=== PATIENT | female | born 1975 | race American Indian/Alaskan Native ===

== ENCOUNTER 2018-09-24 15:04 | Emergency (ER) | payer SELFPAY ==
[2018-09-24 15:33] VITALS: BP 144/84
--- NOTE | 2018-09-24 15:34 | Emergency Department Report ---
Chief Complaint: Dizziness Stated Complaint: FLU LIKE SX Time Seen by Provider: 09/24/18 15:30 - HPI History of Present Illness: This is a 43 y.o. female that presents with flu-like symptoms and dizziness x 3 days. - Exam Vital Signs: Vital Signs 09/24/18 15:26 Temperature 101.1 F H Pulse Rate 97 H Respiratory 20 Rate Blood Pressure 144/84 O2 Sat by Pulse 96 Oximetry Physical Exam: Vital Signs 09/24/18 15:26 Temperature 101.1 F H Pulse Rate 97 H Respiratory 20 Rate Blood Pressure 144/84 O2 Sat by Pulse 96 Oximetry MSE screening note: Focused history and physical exam performed. Due to findings the following was ordered: Rapid flu x CXR ED Disposition for MSE Condition: Stable
[2018-09-24] MEDS ORDERED: MOTRIN PO ONE (17:26)
--- NOTE | 2018-09-24 17:26 | Emergency Department Report ---
- General Chief Complaint: Dizziness Stated Complaint: FLU LIKE SX Time Seen by Provider: 09/24/18 15:30 Source: patient Mode of arrival: Ambulatory Limitations: No Limitations - History of Present Illness Initial Comments: Pt is a 43 yo female PMHx of anemia who presents to the ED with c/o a dry cough that began two days ago. She has associated congestion, fever, rhinorrhea, lig htheadedness, and chest discomfort only with coughing frequently. She denies any sick contacts, sore throat, or ear ache. She states she took a packet that she mixed with water for cold symptoms but was not sure of the name. - Related Data Previous Rx's Medication Instructions Recorded Last Taken Type Azithromycin [Zithromax Z-KELVIN] 250 mg PO DAILY 5 Days #6 tablet 09/24/18 Unknown Rx Benzonatate [Tessalon Perles] 100 mg PO Q8HR PRN #15 capsule 09/24/18 Unknown Rx Prednisone [predniSONE 10 mg 10 mg PO .TAPER #1 tab.ds.pk 09/24/18 Unknown Rx (6-Day Pack, 21 Tabs)] guaiFENesin [Mucinex] 600 mg PO BID #14 tab.er.12h 09/24/18 Unknown Rx Allergies Allergy/AdvReac Type Severity Reaction Status Date / Time No Known Allergies Allergy Verified 09/24/18 15:06 ED Review of Systems ROS: Stated complaint: FLU LIKE SX Other details as noted in HPI Comment: All other systems reviewed and negative ED Past Medical Hx - Past Medical History Previous Medical History?: Yes Additional medical history: anemia - Surgical History Past Surgical History?: No - Social History Smoking Status: Never Smoker Substance Use Type: None - Medications Home Medications: Home Medications Medication Instructions Recorded Confirmed Last Taken Type Azithromycin [Zithromax Z-KELVIN] 250 mg PO DAILY 5 Days #6 tablet 09/24/18 Unknown Rx Benzonatate [Tessalon Perles] 100 mg PO Q8HR PRN #15 capsule 09/24/18 Unknown Rx Prednisone [predniSONE 10 mg 10 mg PO .TAPER #1 tab.ds.pk 09/24/18 Unknown Rx (6-Day Pack, 21 Tabs)] guaiFENesin [Mucinex] 600 mg PO BID #14 tab.er.12h 09/24/18 Unknown Rx ED Physical Exam - General Limitations: No Limitations General appearance: alert, in no apparent distress - Head Head exam: Present: atraumatic, normocephalic - Eye Eye exam: Present: normal appearance - ENT ENT exam: Present: normal orophraynx, other (edema and erythema of the nasal turbinates, cerumen impaction bilaterally) - Neck Neck exam: Present: normal inspection. Absent: meningismus - Respiratory Respiratory exam: Present: normal lung sounds bilaterally. Absent: respiratory distress, wheezes, rales, rhonchi, stridor, chest wall tenderness, accessory muscle use, decreased breath sounds, prolonged expiratory - Cardiovascular Cardiovascular Exam: Present: regular rate, normal rhythm, normal heart sounds. Absent: systolic murmur, rubs, gallop - Neurological Exam Neurological exam: Present: alert, oriented X3 - Psychiatric Psychiatric exam: Present: normal affect, normal mood - Skin Skin exam: Present: warm, dry, intact ED Course Vital Signs 09/24/18 15:26 Temperature 101.1 F H Pulse Rate 97 H Respiratory 20 Rate Blood Pressure 144/84 O2 Sat by Pulse 96 Oximetry ED Medical Decision Making - Lab Data Vital Signs 09/24/18 15:26 Temperature 101.1 F H Pulse Rate 97 H Respiratory 20 Rate Blood Pressure 144/84 O2 Sat by Pulse 96 Oximetry repeat vitals: temp 100.2 and HR 96 - EKG Data -: EKG Interpreted by Ca EKG shows normal: sinus rhythm, axis, intervals, QRS complexes, ST-T waves Rate: normal - Radiology Data Radiology results: report reviewed TECHNIQUE: PA and lateral views of the chest. HISTORY: cough, sob COMPARISONS: None FINDINGS: Lines, tubes, and devices: N/A Lungs and pleura: Trachea is normal in position. Mild markings in the left lateral costophrenic angle are noted suspicious for atelectasis or early infiltrate. Cardiomediastinal silhouette: Cardiac and mediastinal silhouettes are unremarkable. Other: Bony structures are intact. IMPRESSION: Infiltrate in the left lateral costophrenic angle suspicious for atelectasis or pneumonia This document is electronically signed by Elsie Gaytan MD., September 24 2018 05:22:26 PM ET - Medical Decision Making Pt presents with a dry cough x 2 days. She has associated fever, rhinorrhea, congestion, and chest discomfort only after coughing. CXR shows a possible early left sided PNA vs atelectasis. Pt was febrile in the ED, given ibuprofen and now is afebrile. VSS. oxygen saturation is WNL. Discussed results with pt. Advised to take ibuprofen or tylenol for a temperature of 100.4 or greater. Will tx patient for CAP PNA. Advised pt to take all medication as prescribed and follow up with her PCP in the next 2 days. Discussed return to the ED for any new or worsening symptoms. - Differential Diagnosis URI, PNA, Influenza, Viral syndrome Critical care attestation.: If time is entered above; I have spent that time in minutes in the direct care of this critically ill patient, excluding procedure time. ED Disposition Clinical Impression: PNA (pneumonia) Qualifiers: Pneumonia type: due to unspecified organism Laterality: left Lung location: unspecified part of lung Qualified Code(s): J18.9 - Pneumonia, unspecified organism Disposition: - TO HOME OR SELFCARE Is pt being admited?: No Does the pt Need Aspirin: No Condition: Stable Instructions: Community-acquired Pneumonia (ED) Additional Instructions: Follow up with your primary care doctor in the next 2 days. Return to the emergency room for any new or worsening symptoms or if symptoms do not improve. Take all medication as prescribed. Use tylenol or ibuprofen for a temperature of 100.4 or greater. Prescriptions: guaiFENesin [Mucinex] 600 mg PO BID #14 tab.er.12h Prednisone [predniSONE 10 mg (6-Day Pack, 21 Tabs)] 10 mg PO .TAPER #1 tab.ds.pk Benzonatate [Tessalon Perles] 100 mg PO Q8HR PRN #15 capsule PRN Reason: Cough Azithromycin [Zithromax Z-KELVIN] 250 mg PO DAILY 5 Days #6 tablet Referrals: PRIMARY CARE,MD [Primary Care Provider] - 2-3 Days Forms: Work/School Release Form(ED) Time of Disposition: 18:02 Print Language: [place]
[2018-09-24] MEDS ORDERED: MOTRIN ONE (17:28)
== END 2018-09-24 20:07 | disposition home or self-care (01) ==
LOC: ED 15:04
DX: J18.9 Pneumonia, unspecified organism (principal)
CPT/HCPCS: 71046; 87400; 93005; 93010; 99283

== ENCOUNTER 2018-10-24 21:51 | Inpatient (IN) | payer MEDICAID, OTHER ==
--- NOTE | 2018-10-24 21:57 | Emergency Department Report ---
Blank Doc - Documentation Documentation: This is a 43-year-old female that presents with facial drooping and one sided weakness. This initial assessment/diagnostic orders/clinical plan/treatment(s) is/are subject to change based on patient's health status, clinical progression and re- assessment by fellow clinical providers in the ED. Further treatment and workup at subsequent clinical providers discretion. Patient/guardians urged not to elope from the ED as their condition may be serious if not clinically assessed and managed. Initial orders include: 1- Patient sent to MAIN ED for further evaluation and treatment 2- code stroke 3 labs 4- CT head
[2018-10-24 22:13] LABS: Mean Corpuscular HGB Conc 32 % (30-34); Mean Corpuscular Volume 72 fl (79-97); Platelet Count 245 K/mm3 (140-440); Red Cell Distribution Width 17.2 % (13.2-15.2)
[2018-10-24 22:24] LABS: INR 0.95 (0.87-1.13); Partial Thromboplastin Time 28.7 Sec. (24.2-36.6)
[2018-10-24 22:25] LABS: Thrombin Time 19.1 Sec. (15.1-19.6)
--- NOTE | 2018-10-24 22:26 | Cat Scan Report ---
PROCEDURE: CT HEAD/BRAIN WO CON TECHNIQUE: Axial helical imaging from the skull base to the vertex. HISTORY: Stroke symptoms COMPARISONS: None FINDINGS: There is no evidence of an acute intracranial process, intracranial hemorrhage or mass effect. The ventricles are normal size. The visualized portions of the orbits, paranasal and mastoid sinuses are unremarkable. The bony structures are unremarkable. IMPRESSION: 1. No evidence of an acute intracranial process, intracranial hemorrhage or mass effect. If there is a clinical suspicion of acute cerebral ischemia, MRI brain may be helpful. The findings of no evidence of acute infarct and no evidence of intracranial hemorrhage were relayed to Dr. Castillo at 10:20 PM October 24, 2018. This document is electronically signed by Lisa Valentino MD., October 24 2018 10:24:18 PM ET
--- NOTE | 2018-10-24 22:28 | Emergency Department Report ---
ED Neuro Deficit HPI - General Chief Complaint: Neuro Symptoms/Deficit Stated Complaint: POSS STOKE/BLURRED VISION/FACIAL NUMBNESS Time Seen by Provider: 10/24/18 21:56 Source: patient Mode of arrival: Ambulatory Limitations: No Limitations - History of Present Illness Initial Comments: 43-year-old female with no past medical history presents to ED with complaint of facial droop. Patient states she awoke this morning and 6:30 AM with right facial weakness. Patient states when she went to bed last night at approximately 9 PM everything was normal. Patient reports photophobia in the right eye. Also reports mild right-sided headache that has developed throughout the day. Patient also reported mild weakness in the right leg as well. PCP: none -: This morning Location: right face, right leg Presenting Symptoms: Present: Facial Droop/Numbness History of same: No Place: home Severity: moderate Quality: weak Improves With: none Worsens With: none On Anticoagulants: No Associated Symptoms: headaches. denies: chest pain, nausea/vomiting Treatments Prior to Arrival: none - Related Data Home Medications: Previous Rx's Medication Instructions Recorded Last Taken Type Azithromycin [Zithromax Z-KELVIN] 250 mg PO DAILY 5 Days #6 tablet 09/24/18 Unknown Rx Benzonatate [Tessalon Perles] 100 mg PO Q8HR PRN #15 capsule 09/24/18 Unknown Rx Prednisone [predniSONE 10 mg 10 mg PO .TAPER #1 tab.ds.pk 09/24/18 Unknown Rx (6-Day Pack, 21 Tabs)] guaiFENesin [Mucinex] 600 mg PO BID #14 tab.er.12h 09/24/18 Unknown Rx Allergies/Adverse Reactions: Allergies Allergy/AdvReac Type Severity Reaction Status Date / Time No Known Allergies Allergy Verified 09/24/18 15:06 ED Review of Systems ROS: Stated complaint: POSS STOKE/BLURRED VISION/FACIAL NUMBNESS Other details as noted in HPI Comment: All other systems reviewed and negative Constitutional: denies: chills, fever Respiratory: denies: cough Cardiovascular: denies: chest pain Gastrointestinal: denies: nausea, vomiting Neurological: headache, weakness ED Past Medical Hx - Past Medical History Additional medical history: anemia - Social History Smoking Status: Never Smoker Substance Use Type: None - Medications Home Medications: Home Medications Medication Instructions Recorded Confirmed Last Taken Type Azithromycin [Zithromax Z-KELVIN] 250 mg PO DAILY 5 Days #6 tablet 09/24/18 Unknown Rx Benzonatate [Tessalon Perles] 100 mg PO Q8HR PRN #15 capsule 09/24/18 Unknown Rx Prednisone [predniSONE 10 mg 10 mg PO .TAPER #1 tab.ds.pk 09/24/18 Unknown Rx (6-Day Pack, 21 Tabs)] guaiFENesin [Mucinex] 600 mg PO BID #14 tab.er.12h 09/24/18 Unknown Rx ED Neuro Physical Exam - General Limitations: No Limitations General appearance: alert, in no apparent distress Suspected Stroke: Yes - Head Head exam: Present: atraumatic, normocephalic - Eye Eye exam: Present: PERRL, EOMI, other (unable to fully close right eye) - ENT ENT exam: Present: mucous membranes moist - Neck Neck exam: Present: normal inspection - Respiratory Respiratory exam: Present: normal lung sounds bilaterally. Absent: respiratory distress - Cardiovascular Cardiovascular Exam: Present: regular rate, normal rhythm - GI/Abdominal GI/Abdominal exam: Present: soft. Absent: distended, tenderness - Extremities Exam Extremities exam: Present: normal inspection - Neurological Exam Neurological exam: Present: alert, oriented X3 - NIHSS Assessment Interval: Baseline 1a. Level of Consciousness: alert/keenly responsive 1b. LOC Questions: answers both correctly 1c. LOC Commands: performs tasks correctly 2. Best Gaze: normal 3. Visual: no visual loss 4. Facial Palsy: partial paralysis 5b. Motor Arm Right: no drift 5a. Motor Arm Left: no drift 6a. Motor Leg Left: no drift 6b. Motor Leg Right: drift 7. Limb Ataxia: absent 8. Sensory: mild/moderate sensory loss 9. Best Language: no aphasia 10. Dysarthria: normal 11. Extinction/Inattention: no abnormality Total Score: 4 Stroke Severity: Minor Stroke - Psychiatric Psychiatric exam: Present: normal affect, normal mood - Skin Skin exam: Present: warm, dry, intact, normal color ED Course Vital Signs 10/24/18 10/24/18 21:54 22:29 Temperature 98.0 F 98.5 F Pulse Rate 100 H 92 H Respiratory 16 12 Rate Blood Pressure 132/89 Blood Pressure 135/80 [Left] O2 Sat by Pulse 98 100 Oximetry - Lab Data Result diagrams: 10/24/18 22:03 10/24/18 22:03 Lab Results 10/24/18 10/24/18 10/24/18 Range/Units 22:00 22:03 22:03 WBC 5.1 (4.5-11.0) K/mm3 RBC 4.70 (3.65-5.03) M/mm3 Hgb 11.0 (10.1-14.3) gm/dl Hct 34.0 (30.3-42.9) % MCV 72 L (79-97) fl MCH 23 L (28-32) pg MCHC 32 (30-34) % RDW 17.2 H (13.2-15.2) % Plt Count 245 (140-440) K/mm3 Add Manual Diff Complete Total Counted 100 Seg Neutrophils % [place] Seg Neuts % (Manual) 50.0 (40.0-70.0) % Band Neutrophils % 0 % Lymphocytes % (Manual) 38.0 H (13.4-35.0) % Reactive Lymphs % (Man) 0 % Monocytes % (Manual) 11.0 H (0.0-7.3) % Eosinophils % (Manual) 0 (0.0-4.3) % Basophils % (Manual) 1.0 (0.0-1.8) % Metamyelocytes % 0 % Myelocytes % 0 % Promyelocytes % 0 % Blast Cells % 0 % Nucleated RBC % Not Reportable Seg Neutrophils # Man 2.6 (1.8-7.7) K/mm3 Band Neutrophils # 0.0 K/mm3 Lymphocytes # (Manual) 1.9 (1.2-5.4) K/mm3 Abs React Lymphs (Man) 0.0 K/mm3 Monocytes # (Manual) 0.6 (0.0-0.8) K/mm3 Eosinophils # (Manual) 0.0 (0.0-0.4) K/mm3 Basophils # (Manual) 0.1 (0.0-0.1) K/mm3 Metamyelocytes # 0.0 K/mm3 Myelocytes # 0.0 K/mm3 Promyelocytes # 0.0 K/mm3 Blast Cells # 0.0 K/mm3 WBC Morphology Not Reportable Hypersegmented Neuts Not Reportable Hyposegmented Neuts Not Reportable Hypogranular Neuts Not Reportable Smudge Cells Not Reportable Toxic Granulation Not Reportable Toxic Vacuolation Not Reportable Dohle Bodies Not Reportable Pelger-Huet Anomaly Not Reportable Karyn Rods Not Reportable Platelet Estimate Consistent w auto Clumped Platelets Not Reportable Plt Clumps, EDTA Not Reportable Large Platelets Not Reportable Giant Platelets Few Platelet Satelliting Not Reportable Plt Morphology Comment Not Reportable RBC Morphology Not Reportable Dimorphic RBCs Not Reportable Polychromasia Not Reportable Hypochromasia 1+ Poikilocytosis Not Reportable Anisocytosis Not Reportable Microcytosis Not Reportable Macrocytosis Not Reportable Spherocytes Not Reportable Pappenheimer Bodies Not Reportable Sickle Cells Not Reportable Target Cells Not Reportable Tear Drop Cells Not Reportable Ovalocytes Not Reportable Helmet Cells Not Reportable [place] Bodies Not Reportable [place] Rings Not Reportable [place] Cells Not Reportable Bite Cells Not Reportable Crenated Cell Not Reportable Elliptocytes Not Reportable Acanthocytes (Spur) Not Reportable Rouleaux Not Reportable Hemoglobin C Crystals Not Reportable Schistocytes Not Reportable Malaria parasites Not Reportable Dhruv Bodies Not Reportable Hem Pathologist Commnt No PT 13.2 (12.2-14.9) Sec. INR 0.95 (0.87-1.13) APTT 28.7 (24.2-36.6) Sec. Thrombin Time 19.1 (15.1-19.6) Sec. Sodium (137-145) mmol/L Potassium (3.6-5.0) mmol/L Chloride (98-107) mmol/L Carbon Dioxide (22-30) mmol/L Anion Gap mmol/L BUN (7-17) mg/dL Creatinine (0.7-1.2) mg/dL Estimated GFR ml/min BUN/Creatinine Ratio % Glucose (65-100) mg/dL POC Glucose (70-105) Calcium (8.4-10.2) mg/dL Total Creatine Kinase (30-135) units/L CK-MB (CK-2) (0.0-4.0) ng/mL CK-MB (CK-2) Rel Index (0-4) Troponin T (0.00-0.029) ng/mL Urine Color (Yellow) Urine Turbidity (Clear) Urine pH (5.0-7.0) Ur Specific [place] (1.003-1.030) Urine Protein (Negative) mg/dL Urine Glucose (UA) (Negative) mg/dL Urine Ketones (Negative) mg/dL Urine Blood (Negative) Urine Nitrite (Negative) Urine Bilirubin (Negative) Urine Urobilinogen (<2.0) mg/dL Ur Leukocyte Esterase (Negative) Urine WBC (Auto) (0.0-6.0) /HPF Urine RBC (Auto) (0.0-6.0) /HPF U Epithel Cells (Auto) (0-13.0) /HPF Urine HCG, Qual (Negative) Urine Opiates Screen Urine Methadone Screen Ur Barbiturates Screen Ur Phencyclidine Scrn Ur Amphetamines Screen U Benzodiazepines Scrn Urine Cocaine Screen U Marijuana (THC) Screen Drugs of Abuse Note Blood Type AB NEGATIVE Antibody Screen Negative 10/24/18 10/24/18 10/24/18 Range/Units 22:03 22:08 23:55 WBC (4.5-11.0) K/mm3 RBC (3.65-5.03) M/mm3 Hgb (10.1-14.3) gm/dl Hct (30.3-42.9) % MCV (79-97) fl MCH (28-32) pg MCHC (30-34) % RDW (13.2-15.2) % Plt Count (140-440) K/mm3 Add Manual Diff Total Counted Seg Neutrophils % Seg Neuts % (Manual) (40.0-70.0) % Band Neutrophils % % Lymphocytes % (Manual) (13.4-35.0) % Reactive Lymphs % (Man) % Monocytes % (Manual) (0.0-7.3) % Eosinophils % (Manual) (0.0-4.3) % Basophils % (Manual) (0.0-1.8) % Metamyelocytes % % Myelocytes % % Promyelocytes % % Blast Cells % % Nucleated RBC % Seg Neutrophils # Man (1.8-7.7) K/mm3 Band Neutrophils # K/mm3 Lymphocytes # (Manual) (1.2-5.4) K/mm3 Abs React Lymphs (Man) K/mm3 Monocytes # (Manual) (0.0-0.8) K/mm3 Eosinophils # (Manual) (0.0-0.4) K/mm3 Basophils # (Manual) (0.0-0.1) K/mm3 Metamyelocytes # K/mm3 Myelocytes # K/mm3 Promyelocytes # K/mm3 Blast Cells # K/mm3 WBC Morphology Hypersegmented Neuts Hyposegmented Neuts Hypogranular Neuts Smudge Cells Toxic Granulation Toxic Vacuolation Dohle Bodies Pelger-Huet Anomaly Karyn Rods Platelet Estimate Clumped Platelets Plt Clumps, EDTA Large Platelets Giant Platelets Platelet Satelliting Plt Morphology Comment RBC Morphology Dimorphic RBCs Polychromasia Hypochromasia Poikilocytosis Anisocytosis Microcytosis Macrocytosis Spherocytes Pappenheimer Bodies Sickle Cells Target Cells Tear Drop Cells Ovalocytes Helmet Cells [place]-Seeley Bodies [place] Rings [place] Cells Bite Cells Crenated Cell Elliptocytes Acanthocytes (Spur) Rouleaux Hemoglobin C Crystals Schistocytes Malaria parasites Dhruv Bodies Hem Pathologist Commnt PT (12.2-14.9) Sec. INR (0.87-1.13) APTT (24.2-36.6) Sec. Thrombin Time (15.1-19.6) Sec. Sodium 141 (137-145) mmol/L Potassium 3.0 L (3.6-5.0) mmol/L Chloride 102.4 (98-107) mmol/L Carbon Dioxide 25 (22-30) mmol/L Anion Gap 17 mmol/L BUN 6 L (7-17) mg/dL Creatinine 0.7 (0.7-1.2) mg/dL Estimated GFR > 60 ml/min BUN/Creatinine Ratio 9 % Glucose 94 (65-100) mg/dL POC Glucose 90 (70-105) Calcium 9.9 (8.4-10.2) mg/dL Total Creatine Kinase 142 H (30-135) units/L CK-MB (CK-2) 2.0 (0.0-4.0) ng/mL CK-MB (CK-2) Rel Index 1.4 (0-4) Troponin T < 0.010 (0.00-0.029) ng/mL Urine Color Yellow (Yellow) Urine Turbidity Clear (Clear) Urine pH 7.0 (5.0-7.0) Ur Specific [place] 1.009 (1.003-1.030) Urine Protein <15 mg/dl (Negative) mg/dL Urine Glucose (UA) Neg (Negative) mg/dL Urine Ketones Neg (Negative) mg/dL Urine Blood Neg (Negative) Urine Nitrite Neg (Negative) Urine Bilirubin Neg (Negative) Urine Urobilinogen < 2.0 (<2.0) mg/dL Ur Leukocyte Esterase Lg (Negative) Urine WBC (Auto) 5.0 (0.0-6.0) /HPF Urine RBC (Auto) 2.0 (0.0-6.0) /HPF U Epithel Cells (Auto) 1.0 (0-13.0) /HPF Urine HCG, Qual Negative (Negative) Urine Opiates Screen Urine Methadone Screen Ur Barbiturates Screen Ur Phencyclidine Scrn Ur Amphetamines Screen U Benzodiazepines Scrn Urine Cocaine Screen U Marijuana (THC) Screen Drugs of Abuse Note Blood Type Antibody Screen 10/24/18 Range/Units 23:55 WBC (4.5-11.0) K/mm3 RBC (3.65-5.03) M/mm3 Hgb (10.1-14.3) gm/dl Hct (30.3-42.9) % MCV (79-97) fl MCH (28-32) pg MCHC (30-34) % RDW (13.2-15.2) % Plt Count (140-440) K/mm3 Add Manual Diff Total Counted Seg Neutrophils % Seg Neuts % (Manual) (40.0-70.0) % Band Neutrophils % % Lymphocytes % (Manual) (13.4-35.0) % Reactive Lymphs % (Man) % Monocytes % (Manual) (0.0-7.3) % Eosinophils % (Manual) (0.0-4.3) % Basophils % (Manual) (0.0-1.8) % Metamyelocytes % % Myelocytes % % Promyelocytes % % Blast Cells % % Nucleated RBC % Seg Neutrophils # Man (1.8-7.7) K/mm3 Band Neutrophils # K/mm3 Lymphocytes # (Manual) (1.2-5.4) K/mm3 Abs React Lymphs (Man) K/mm3 Monocytes # (Manual) (0.0-0.8) K/mm3 Eosinophils # (Manual) (0.0-0.4) K/mm3 Basophils # (Manual) (0.0-0.1) K/mm3 Metamyelocytes # K/mm3 Myelocytes # K/mm3 Promyelocytes # K/mm3 Blast Cells # K/mm3 WBC Morphology Hypersegmented Neuts Hyposegmented Neuts Hypogranular Neuts Smudge Cells Toxic Granulation Toxic Vacuolation Dohle Bodies Pelger-Huet Anomaly Karyn Rods Platelet Estimate Clumped Platelets Plt Clumps, EDTA Large Platelets Giant Platelets Platelet Satelliting Plt Morphology Comment RBC Morphology Dimorphic RBCs Polychromasia Hypochromasia Poikilocytosis Anisocytosis Microcytosis Macrocytosis Spherocytes Pappenheimer Bodies Sickle Cells Target Cells Tear Drop Cells Ovalocytes Helmet Cells [place]-Seeley Bodies [place] Rings [place] Cells Bite Cells Crenated Cell Elliptocytes Acanthocytes (Spur) Rouleaux Hemoglobin C Crystals Schistocytes Malaria parasites Dhruv Bodies Hem Pathologist Commnt PT (12.2-14.9) Sec. INR (0.87-1.13) APTT (24.2-36.6) Sec. Thrombin Time (15.1-19.6) Sec. Sodium (137-145) mmol/L Potassium (3.6-5.0) mmol/L Chloride (98-107) mmol/L Carbon Dioxide (22-30) mmol/L Anion Gap mmol/L BUN (7-17) mg/dL Creatinine (0.7-1.2) mg/dL Estimated GFR ml/min BUN/Creatinine Ratio % Glucose (65-100) mg/dL POC Glucose (70-105) Calcium (8.4-10.2) mg/dL Total Creatine Kinase (30-135) units/L CK-MB (CK-2) (0.0-4.0) ng/mL CK-MB (CK-2) Rel Index (0-4) Troponin T (0.00-0.029) ng/mL Urine Color (Yellow) Urine Turbidity (Clear) Urine pH (5.0-7.0) Ur Specific [place] (1.003-1.030) Urine Protein (Negative) mg/dL Urine Glucose (UA) (Negative) mg/dL Urine Ketones (Negative) mg/dL Urine Blood (Negative) Urine Nitrite (Negative) Urine Bilirubin (Negative) Urine Urobilinogen (<2.0) mg/dL Ur Leukocyte Esterase (Negative) Urine WBC (Auto) (0.0-6.0) /HPF Urine RBC (Auto) (0.0-6.0) /HPF U Epithel Cells (Auto) (0-13.0) /HPF Urine HCG, Qual (Negative) Urine Opiates Screen Presumptive negative Urine Methadone Screen Presumptive negative Ur Barbiturates Screen Presumptive negative Ur Phencyclidine Scrn Presumptive negative Ur Amphetamines Screen Presumptive negative U Benzodiazepines Scrn Presumptive negative Urine Cocaine Screen Presumptive negative U Marijuana (THC) Screen Presumptive negative Drugs of Abuse Note Disclamer Blood Type Antibody Screen - EKG Data -: EKG Interpreted by Me EKG shows normal: sinus rhythm, axis, intervals, QRS complexes, ST-T waves Rate: normal Interpretation: no acute changes - Radiology Data Radiology results: report reviewed, image reviewed - Medical Decision Making 43 yo F presents to ED with right facial droop which was present when she awoke this morning at 6AM. Pt reports she was last normal at 9PM last night. Pt has right facial weakness which also appears to involve the right forehead, pt having difficulty completely closing the right eye. She also seems to be having mild weakness in the right leg w/ some sensory changes as well. CT negative for any acute finding. Pt outside the window for tPA or neurointerventional procedure as it has been more than 24 hrs since she was last normal. Pt seen and evaluated by teleneurologist. Will admit to hospitalist for MRI and further workup - Differential Diagnosis Maddox's palsy, CVA - Thrombolytic Inclusion/Exclusion Thrombolytic Exclusion Criteria: Symptom Onset > 3 Hours Critical care attestation.: If time is entered above; I have spent that time in minutes in the direct care of this critically ill patient, excluding procedure time. ED Disposition Clinical Impression: CVA (cerebral vascular accident) Disposition: -09 OP ADMIT IP TO THIS HOSP Is pt being admited?: Yes Condition: Stable Time of Disposition: 23:23
[2018-10-24] MEDS ORDERED: ASPIRIN PO ONE (22:29)
[2018-10-24 22:48] LABS: BUN/Creatinine Ratio 9; Blood Urea Nitrogen 6 mg/dL (7-17); Calcium 9.9 mg/dL (8.4-10.2); Hemolysis Index 0
--- NOTE | 2018-10-24 22:53 | Emergency Department Report ---
ED Neuro Deficit HPI - General Chief Complaint: Neuro Symptoms/Deficit Stated Complaint: POSS STOKE/BLURRED VISION/FACIAL NUMBNESS Time Seen by Provider: 10/24/18 21:56 Source: patient Mode of arrival: Ambulatory Limitations: No Limitations - History of Present Illness Initial Comments: [facility] TeleNeurology Consult Services Impression: * Facial weakness * RO Acute Ischemic Stroke. Patient presents with history of right sided facial weakness, which was noted this morning when she woke up, last seen normal last night. She displays facial weakness right upper and lower aspect of the face. While this has the pattern of LMN CN 7 palsy, [place] Palsy, at the same time, there is indication of left facial and right body sensory loss. The sensory exam is somewhat subjective , but if real, it may portend pontine localization. For this reason, it would be important to obtain MRI head with contrast. * Another somewhat potentially atypical feature is right unilateral headache which started in the afternoon. * I discussed the case with ED physician and perhaps have recommended to initiate treatment with non-vasoactive treatment options, such as Toradol and or Compazine. * Depacon 15 mg per kg load may be another option and she will need testing for this. * I reviewed the CT head and this appeared negative to my review. * Would start on antiplatelet therapy now. Not a tpa candidate due to: long duration. Presentation is not suggestive of Large Vessel Occlusive Disease. Thrombectomy would not be recommended. Comments: [facility] contacted: [phone] [facility] at bedside: [phone] Discussed with ED MD Please call with questions Alirio Santos MD [employer] --------- CC Facial weakness History of Present Illness Patient is a pleasant 43 year old woman who presents with right facial weakness. Patient states that she woke up this morning at 6:30 AM with the symptoms. She was asymptomatic when she went to sleep last night at about 9 PM. Throughout the day she developed a gradual onset and progression of right unilateral throbbing headache which has persisted now and is at maximum se verity. Diagnostic: CT head was reviewed and this was negative. There was no indication of acute hemorrhage or acute focal infarct. Exam: Patient is in no apparent distress. Patient appears as stated age. No obvious acute respiratory or cardiac distress. Patient is well groomed and well- nourished. 1A: Level of Consciousness - Alert; keenly responsive 1B: Ask Month and Age - Both Questions Right 1C: 'Blink Eyes' & 'Squeeze Hands' - Performs Both Tasks 2: Test Horizontal Extraocular Movements - Normal 3: Test Visual Catalan - No Visual Loss 4: Test Facial patient reports right facial weakness both the upper and lower as per the face -2 5A: Test Left Arm Motor Drift - No Drift for 10 Seconds 5B: Test Right Arm Motor Drift - No Drift for 10 Seconds 6A: Test Left Leg Motor Drift - No Drift for 5 Seconds 6B: Test Right Leg Motor Drift - No Drift for 5 Seconds 7: Test Limb Ataxia - No Ataxia 8: Test Sensat reduce sensation left face and right lower limb -1 9: Test Language/Aphasia - Normal; No aphasia 10: Test Dysarthria - Normal 11: Test Extinction/Inattention - No abnormality NIHSS 3 Medical Decision Making: - Extensive number of diagnosis or management options are considered above. - Extensive amount of complex data reviewed. - High risk of complication and/or morbidity or mortality are associated with differential diagnostic considerations above. - There may be Uncertain outcome and increased probability of prolonged funct ional impairment or high probability of severe prolonged functional impairment associated with some of these differential diagnosis. Medical Data Reviewed: 1.Data reviewed include clinical labs, radiology,Medical Tests; 2.Tests results discussed w/performing or interpreting physician; 3.Obtaining/reviewing old medical records; 4.Obtaining case history from another source; 5.Independent review of image, tracing or specimen. Patient was informed the Neurology Consult would happen via telehealth (remote video) and consented to receiving care in this manner. Location: right face, right leg History of same: No Place: home Severity: moderate Quality: weak Improves With: none Worsens With: none On Anticoagulants: No Treatments Prior to Arrival: none - Related Data Home Medications: Previous Rx's Medication Instructions Recorded Last Taken Type Azithromycin [Zithromax Z-KELVIN] 250 mg PO DAILY 5 Days #6 tablet 09/24/18 Unknown Rx Benzonatate [Tessalon Perles] 100 mg PO Q8HR PRN #15 capsule 09/24/18 Unknown Rx Prednisone [predniSONE 10 mg 10 mg PO .TAPER #1 tab.ds.pk 09/24/18 Unknown Rx (6-Day Pack, 21 Tabs)] guaiFENesin [Mucinex] 600 mg PO BID #14 tab.er.12h 09/24/18 Unknown Rx Allergies/Adverse Reactions: Allergies Allergy/AdvReac Type Severity Reaction Status Date / Time No Known Allergies Allergy Verified 09/24/18 15:06 ED Review of Systems ROS: Stated complaint: POSS STOKE/BLURRED VISION/FACIAL NUMBNESS Other details as noted in HPI Constitutional: denies: chills, fever Respiratory: denies: cough Cardiovascular: denies: chest pain Gastrointestinal: denies: nausea, vomiting Neurological: headache, weakness ED Past Medical Hx - Past Medical History Additional medical history: anemia - Social History Smoking Status: Never Smoker Substance Use Type: None - Medications Home Medications: Home Medications Medication Instructions Recorded Confirmed Last Taken Type Azithromycin [Zithromax Z-KELVIN] 250 mg PO DAILY 5 Days #6 tablet 09/24/18 Unknown Rx Benzonatate [Tessalon Perles] 100 mg PO Q8HR PRN #15 capsule 09/24/18 Unknown R x Prednisone [predniSONE 10 mg 10 mg PO .TAPER #1 tab.ds.pk 09/24/18 Unknown Rx (6-Day Pack, 21 Tabs)] guaiFENesin [Mucinex] 600 mg PO BID #14 tab.er.12h 09/24/18 Unknown Rx ED Neuro Physical Exam - General Limitations: No Limitations General appearance: alert, in no apparent distress Suspected Stroke: Yes - NIHSS Assessment Interval: Baseline 1a. Level of Consciousness: alert/keenly responsive 1b. LOC Questions: answers both correctly 1c. LOC Commands: performs tasks correctly 2. Best Gaze: normal 3. Visual: no visual loss 4. Facial Palsy: partial paralysis 5b. Motor Arm Right: no drift 5a. Motor Arm Left: no drift 6a. Motor Leg Left: no drift 6b. Motor Leg Right: no drift 7. Limb Ataxia: absent 8. Sensory: mild/moderate sensory loss 9. Best Language: no aphasia 10. Dysarthria: normal 11. Extinction/Inattention: no abnormality Total Score: 3 Stroke Severity: Minor Stroke ED Course Vital Signs 10/24/18 10/24/18 21:54 22:29 Temperature 98.0 F 98.5 F Pulse Rate 100 H 92 H Respiratory 16 12 Rate Blood Pressure 132/89 Blood Pressure 135/80 [Left] O2 Sat by Pulse 98 100 Oximetry - Lab Data Result diagrams: 10/24/18 22:03 Lab Results 10/24/18 10/24/18 10/24/18 Range/Units 22:03 22:03 22:08 WBC 5.1 (4.5-11.0) K/mm3 RBC 4.70 (3.65-5.03) M/mm3 Hgb 11.0 (10.1-14.3) gm/dl Hct 34.0 (30.3-42.9) % MCV 72 L (79-97) fl MCH 23 L (28-32) pg MCHC 32 (30-34) % RDW 17.2 H (13.2-15.2) % Plt Count 245 (140-440) K/mm3 Seg Neutrophils % Senior Planning Manager PT 13.2 (12.2-14.9) Sec. INR 0.95 (0.87-1.13) APTT 28.7 (24.2-36.6) Sec. Thrombin Time 19.1 (15.1-19.6) Sec. POC Glucose 90 (70-105) Critical care attestation.: If time is entered above; I have spent that time in minutes in the direct care of this critically ill patient, excluding procedure time. ED Disposition Clinical Impression: Stroke (cerebrum) Disposition: DC/TX-02 SHRT-TRM GEN HOSP IP Is pt being admited?: Yes Condition: Stable
[2018-10-24 23:10] LABS: Eosinophils % (Manual) 0 % (0.0-4.3); Total Cells Counted 100
[2018-10-24 23:11] LABS: Giant Platelets Few; Hypochromasia 1+; Platelet Estimate Consistent w Auto
[2018-10-25 00:15] LABS: Bilirubin,Urine NEG (Negative); Blood,Urine NEG (Negative); Color,Urine Yellow (Yellow); Protein,Urine <15 mg/dL mg/dL (Negative); Urobilinogen,Urine < 2.0 mg/dL (<2.0)
--- NOTE | 2018-10-25 00:17 | History and Physical Report ---
History of Present Illness Date of examination: 10/25/18 History of present illness: 43-year-old woman with no medical problems comes to the emergency room which right-leg weakness, and twisting of her face when she woke up around 6:30, also had a headache Review of systems Constitutional: no weight loss, chills, fever Ears, eyes, nose, mouth and throat: no nasal congestion, no nasal discharge, no sinus pressure, no vision change, no red eye. Neck: No neck pain or rigidity. Cardiovascular: no palpitations, chest pain Respiratory: no cough, shortness of breath Gastrointestinal: no hematochezia, abdominal pain Genitourinary : no frequency , no hematuria Musculoskeletal: no joint swelling or muscle ache Integumentary: no rash, no pruritis Neurological: no parathesias, no focal weakness Endocrine: no cold or heat intolerance, no polyuria or polydipsia Hematologic/Lymphatic: no easy bruising, no easy bleeding, no gland swelling Allergic/Immunologic: no urticaria, no angioedema. PAST MEDICAL HISTORY: None PAST SURGICAL HISTORY: None SOCIAL HISTORY: Denies alcohol, tobacco, drugs FAMILY HISTORY: Hypertension Medications and Allergies Allergies Allergy/AdvReac Type Severity Reaction Status Date / Time No Known Allergies Allergy Verified 09/24/18 15:06 Home Medications Medication Instructions Recorded Confirmed Last Taken Type Glycerin/Propylene Glycol 3 drops OP TID 7 Days drops 10/26/18 Unknown Rx [Artificial Tears Drops] predniSONE [Deltasone] 4 tab PO QDAY #21 tab 10/26/18 Unknown Rx valACYclovir [Valtrex] 500 mg PO BID #10 tab 10/26/18 Unknown Rx Exam - Physical Exam Narrative exam: Gen. appearance: Patient lying in bed, no apparent distress HEENT: Normocephalic, atraumatic, pupils equally round and reactive to light, extraocular movement intact, and no sclericterus,. No JVD or thyromegaly or nodule,neck supple, no carotid bruit ,mucous membranes moist, no exudate or erythema Heart: S1, S2, regular rate and rhythm Lungs: Clear bilaterally, breathing comfortable Abdomen: Positive bowel sounds, non-tender, nondistended, no organomegaly Extremity:no edema cyanosis, clubbing Skin: no rash, dry, warm Neuro: Oriented 3, difficulty closing the right eye cranial nerves intact, speech is fluent, motor right leg 4/5, no sensory intact - Constitutional Vitals: Temp Pulse Resp BP Pulse Ox 98.5 F 92 H 12 135/80 100 10/24/18 22:29 10/24/18 22:29 10/24/18 22:29 10/24/18 22:29 10/24/18 22:29 Results - Labs CBC & Chem 7: 10/24/18 22:03 10/24/18 22:03 Labs: Abnormal lab results 10/24/18 10/24/18 Range/Units 22:03 22:03 MCV 72 L (79-97) fl MCH 23 L (28-32) pg RDW 17.2 H (13.2-15.2) % Lymphocytes % (Manual) 38.0 H (13.4-35.0) % Monocytes % (Manual) 11.0 H (0.0-7.3) % Potassium 3.0 L (3.6-5.0) mmol/L BUN 6 L (7-17) mg/dL Total Creatine Kinase 142 H (30-135) units/L - Imaging and Cardiology CT Scan - head: report reviewed Assessment and Plan Assessment Acute neurological symptoms, 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
[2018-10-25 00:20] LABS: Amphetamine Screen,Urine PRESUMPTIVE NEGATIVE; Benzodiazepines Screen,Urine PRESUMPTIVE NEGATIVE; Cannabinoid Screen,Urine PRESUMPTIVE NEGATIVE; Cocaine Screen,Urine PRESUMPTIVE NEGATIVE; HCG Qualitative,Urine Negative (Negative); Methadone Screen,Urine PRESUMPTIVE NEGATIVE; Opiate Screen,Urine PRESUMPTIVE NEGATIVE
[2018-10-25] MEDS ORDERED: DULCOLAX PR PRN (00:57)
[2018-10-25] MEDS ORDERED: TYLENOL PO PRN (00:57)
[2018-10-25] MEDS ORDERED: MILK OF MAGNESIA PO PRN (00:57)
[2018-10-25] MEDS ORDERED: ZOFRAN IV PRN (00:57)
[2018-10-25] MEDS ORDERED: SODIUM CHLORIDE FLUSH SYRINGE 10 ML IV PRN (00:57)
--- NOTE | 2018-10-25 12:52 | Magnetic Resonance Report ---
MRI BRAIN WITHOUT CONTRAST: 10/25/18 00:16:00 CLINICAL: Stroke. COMPARISON: CT Head 10/24/18 TECHNIQUE: Axial diffusion, T1, T2, gradient echo T2*, coronal and axial FLAIR and sagittal T1 sequences on a 1.5 Mallika magnet. FINDINGS: Normal ventricles and sulci. No restricted diffusion and no abnormal signal. No mass or mass effect. No hemorrhage, edema or extra-axial collection. Normal pituitary and optic chiasm. The brainstem and cerebellum are normal. Intact vascular flow voids. Normal sinuses. The orbits, and soft tissues are normal. Normal calvarium and skull base. IMPRESSION: Normal study with no evidence of acute/subacute infarct or hemorrhage.
--- NOTE | 2018-10-25 12:52 | Magnetic Resonance Report ---
MRA HEAD WITHOUT CONTRAST: 10/25/18 00:16:00 CLINICAL: Stroke. TECHNIQUE: Axial 3-D [id number] MR angiography of the [place] with review of axial source images. FINDINGS: Intact [place] with no aneurysm, stenosis or occlusion. Symmetric blood flow in the anterior, middle and posterior cerebral arteries. Normal basilar and vertebral arteries. IMPRESSION: Normal study.
--- NOTE | 2018-10-25 13:53 | Progress Note ---
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 the MRI and MRA as expaected are normal will need eye drops and eye protection as usual recomend low dose steriods and valtrex etc eye protection and rops as well recommended Objective - Vital Sign Vital Signs - 12hr 10/25/18 10/25/18 10/25/18 01:52 01:55 03:51 Temperature 98.0 F Pulse Rate 76 56 L Respiratory 20 20 Rate Blood Pressure 106/66 Blood Pressure [Left] O2 Sat by Pulse 99 Oximetry 10/25/18 08:00 Temperature 98.5 F Pulse Rate 65 Respiratory 16 Rate Blood Pressure Blood Pressure 105/73 [Left] O2 Sat by Pulse 97 Oximetry - Laboratory Findings CBC and BMP: 10/24/18 22:03 10/24/18 22:03 Abnormal Lab Findings: Abnormal Labs 10/24/18 10/24/18 22:03 22:03 MCV 72 L MCH 23 L RDW 17.2 H Lymphocytes % (Manual) 38.0 H Monocytes % (Manual) 11.0 H Potassium 3.0 L BUN 6 L Total Creatine Kinase 142 H
[2018-10-25] MEDS: ASPIRIN PO SCH (15:22)
[2018-10-25] MEDS: LOVENOX SUB-Q SCH (15:22)
--- NOTE | 2018-10-25 19:00 | Event Note ---
Date: 10/25/18 Patient seen and examined medical records reviewed Patient was admitted this morning with CVA-like symptoms Not a candidate for TPA, neuro workup is in progress Agree with the current management Follow neurology evaluation and recommendations Physical therapy and occupational therapy today Monitor closely and adjust management as needed
[2018-10-25] MEDS: VALTREX PO SCH (21:38)
[2018-10-26] MEDS: VALTREX PO SCH (08:38)
[2018-10-26] MEDS ORDERED: DELTASONE PO SCH ×2 (10:00)
[2018-10-26] MEDS: ASPIRIN PO SCH (10:10)
[2018-10-26] MEDS: LOVENOX SUB-Q SCH (10:11)
--- NOTE | 2018-10-26 11:40 | Progress Note ---
Hospitalist Physical - Constitutional Vitals: Temp Pulse Resp BP Pulse Ox 98.3 F 62 16 105/68 98 10/26/18 07:40 10/26/18 07:40 10/26/18 07:40 10/26/18 07:40 10/26/18 07:40 Results - Labs CBC & Chem 7: 10/24/18 22:03 10/24/18 22:03 Labs: Laboratory Last Values WBC 5.1 K/mm3 (4.5-11.0) 10/24/18 22:03 RBC 4.70 M/mm3 (3.65-5.03) 10/24/18 22:03 Hgb 11.0 gm/dl (10.1-14.3) 10/24/18 22:03 Hct 34.0 % (30.3-42.9) 10/24/18 22:03 MCV 72 fl (79-97) L 10/24/18 22:03 MCH 23 pg (28-32) L 10/24/18 22:03 MCHC 32 % (30-34) 10/24/18 22:03 RDW 17.2 % (13.2-15.2) H 10/24/18 22:03 Plt Count 245 K/mm3 (140-440) 10/24/18 22:03 Add Manual Diff Complete 10/24/18 22:03 Total Counted 100 10/24/18 22:03 Seg Neutrophils % Tar Distributor Operator 10/24/18 22:03 Seg Neuts % (Manual) 50.0 % (40.0-70.0) 10/24/18 22:03 Band Neutrophils % 0 % 10/24/18 22:03 Lymphocytes % (Manual) 38.0 % (13.4-35.0) H 10/24/18 22:03 Reactive Lymphs % (Man) 0 % 10/24/18 22:03 Monocytes % (Manual) 11.0 % (0.0-7.3) H 10/24/18 22:03 Eosinophils % (Manual) 0 % (0.0-4.3) 10/24/18 22:03 Basophils % (Manual) 1.0 % (0.0-1.8) 10/24/18 22:03 Metamyelocytes % 0 % 10/24/18 22:03 Myelocytes % 0 % 10/24/18 22:03 Promyelocytes % 0 % 10/24/18 22:03 Blast Cells % 0 % 10/24/18 22:03 Nucleated RBC % Not Reportable 10/24/18 22:03 Seg Neutrophils # Man 2.6 K/mm3 (1.8-7.7) 10/24/18 22:03 Band Neutrophils # 0.0 K/mm3 10/24/18 22:03 Lymphocytes # (Manual) 1.9 K/mm3 (1.2-5.4) 10/24/18 22:03 Abs React Lymphs (Man) 0.0 K/mm3 10/24/18 22:03 Monocytes # (Manual) 0.6 K/mm3 (0.0-0.8) 10/24/18 22:03 Eosinophils # (Manual) 0.0 K/mm3 (0.0-0.4) 10/24/18 22:03 Basophils # (Manual) 0.1 K/mm3 (0.0-0.1) 10/24/18 22:03 Metamyelocytes # 0.0 K/mm3 10/24/18 22:03 Myelocytes # 0.0 K/mm3 10/24/18 22:03 Promyelocytes # 0.0 K/mm3 10/24/18 22:03 Blast Cells # 0.0 K/mm3 10/24/18 22:03 WBC Morphology Not Reportable 10/24/18 22:03 Hypersegmented Neuts Not Reportable 10/24/18 22:03 Hyposegmented Neuts Not Reportable 10/24/18 22:03 Hypogranular Neuts Not Reportable 10/24/18 22:03 Smudge Cells Not Reportable 10/24/18 22:03 Toxic Granulation Not Reportable 10/24/18 22:03 Toxic Vacuolation Not Reportable 10/24/18 22:03 Dohle Bodies Not Reportable 10/24/18 22:03 Pelger-Huet Anomaly Not Reportable 10/24/18 22:03 Karyn Rods Not Reportable 10/24/18 22:03 Platelet Estimate Consistent w auto 10/24/18 22:03 Clumped Platelets Not Reportable 10/24/18 22:03 Plt Clumps, EDTA Not Reportable 10/24/18 22:03 Large Platelets Not Reportable 10/24/18 22:03 Giant Platelets Few 10/24/18 22:03 Platelet Satelliting Not Reportable 10/24/18 22:03 Plt Morphology Comment Not Reportable 10/24/18 22:03 RBC Morphology Not Reportable 10/24/18 22:03 Dimorphic RBCs Not Reportable 10/24/18 22:03 Polychromasia Not Reportable 10/24/18 22:03 Hypochromasia 1+ 10/24/18 22:03 Poikilocytosis Not Reportable 10/24/18 22:03 Anisocytosis Not Reportable 10/24/18 22:03 Microcytosis Not Reportable 10/24/18 22:03 Macrocytosis Not Reportable 10/24/18 22:03 Spherocytes Not Reportable 10/24/18 22:03 Pappenheimer Bodies Not Reportable 10/24/18 22:03 Sickle Cells Not Reportable 10/24/18 22:03 Target Cells Not Reportable 10/24/18 22:03 Tear Drop Cells Not Reportable 10/24/18 22:03 Ovalocytes Not Reportable 10/24/18 22:03 Helmet Cells Not Reportable 10/24/18 22:03 [place] Bodies Not Reportable 10/24/18 22:03 Chicken Rings Not Reportable 10/24/18 22:03 [place] Cells Not Reportable 10/24/18 22:03 Bite Cells Not Reportable 10/24/18 22:03 Crenated Cell Not Reportable 10/24/18 22:03 Elliptocytes Not Reportable 10/24/18 22:03 Acanthocytes (Spur) Not Reportable 10/24/18 22:03 Rouleaux Not Reportable 10/24/18 22:03 Hemoglobin C Crystals Not Reportable 10/24/18 22:03 Schistocytes Not Reportable 10/24/18 22:03 Malaria parasites Not Reportable 10/24/18 22:03 Dhruv Bodies Not Reportable 10/24/18 22:03 Hem Pathologist Commnt No 10/24/18 22:03 PT 13.2 Sec. (12.2-14.9) 10/24/18 22:03 INR 0.95 (0.87-1.13) 10/24/18 22:03 APTT 28.7 Sec. (24.2-36.6) 10/24/18 22:03 Thrombin Time 19.1 Sec. (15.1-19.6) 10/24/18 22:03 Sodium 141 mmol/L (137-145) 10/24/18 22:03 Potassium 3.0 mmol/L (3.6-5.0) L 10/24/18 22:03 Chloride 102.4 mmol/L (98-107) 10/24/18 22:03 Carbon Dioxide 25 mmol/L (22-30) 10/24/18 22:03 Anion Gap 17 mmol/L 10/24/18 22:03 BUN 6 mg/dL (7-17) L 10/24/18 22:03 Creatinine 0.7 mg/dL (0.7-1.2) 10/24/18 22:03 Estimated GFR > 60 ml/min 10/24/18 22:03 BUN/Creatinine Ratio 9 % 10/24/18 22:03 Glucose 94 mg/dL (65-100) 10/24/18 22:03 POC Glucose 90 (70-105) 10/24/18 22:08 Calcium 9.9 mg/dL (8.4-10.2) 10/24/18 22:03 Total Creatine Kinase 142 units/L (30-135) H 10/24/18 22:03 CK-MB (CK-2) 2.0 ng/mL (0.0-4.0) 10/24/18 22:03 CK-MB (CK-2) Rel Index 1.4 (0-4) 10/24/18 22:03 Troponin T < 0.010 ng/mL (0.00-0.029) 10/24/18 22:03 Urine Color Yellow (Yellow) 10/24/18 23:55 Urine Turbidity Clear (Clear) 10/24/18 23:55 Urine pH 7.0 (5.0-7.0) 10/24/18 23:55 Ur Specific [place] 1.009 (1.003-1.030) 10/24/18 23:55 Urine Protein <15 mg/dl mg/dL (Negative) 10/24/18 23:55 Urine Glucose (UA) Neg mg/dL (Negative) 10/24/18 23:55 Urine Ketones Neg mg/dL (Negative) 10/24/18 23:55 Urine Blood Neg (Negative) 10/24/18 23:55 Urine Nitrite Neg (Negative) 10/24/18 23:55 Urine Bilirubin Neg (Negative) 10/24/18 23:55 Urine Urobilinogen < 2.0 mg/dL (<2.0) 10/24/18 23:55 Ur Leukocyte Esterase Lg (Negative) 10/24/18 23:55 Urine WBC (Auto) 5.0 /HPF (0.0-6.0) 10/24/18 23:55 Urine RBC (Auto) 2.0 /HPF (0.0-6.0) 10/24/18 23:55 U Epithel Cells (Auto) 1.0 /HPF (0-13.0) 10/24/18 23:55 Urine HCG, Qual Negative (Negative) 10/24/18 23:55 Urine Opiates Screen Presumptive negative 10/24/18 23:55 Urine Methadone Screen Presumptive negative 10/24/18 23:55 Ur Barbiturates Screen Presumptive negative 10/24/18 23:55 Ur Phencyclidine Scrn Presumptive negative 10/24/18 23:55 Ur Amphetamines Screen Presumptive negative 10/24/18 23:55 U Benzodiazepines Scrn Presumptive negative 10/24/18 23:55 Urine Cocaine Screen Presumptive negative 10/24/18 23:55 U Marijuana (THC) Screen Presumptive negative 10/24/18 23:55 Drugs of Abuse Note Disclamer 10/24/18 23:55 Blood Type AB NEGATIVE 10/24/18 22:00 Antibody Screen Negative 10/24/18 22:00 Active Medications - Current Medications Current Medications: Generic Name Dose Route Start Last Admin Trade Name Freq PRN Reason Stop Dose Admin Acetaminophen 650 mg 10/25/18 00:57 Tylenol PO Q4H PRN Pain, Mild (1-3) Aspirin 325 mg 10/25/18 10:00 10/26/18 10:10 Aspirin PO 325 mg QDAY ALISSA Administration Atorvastatin Calcium 40 mg 10/25/18 22:00 10/25/18 21:38 Lipitor PO 40 mg QHS ALISSA Administration Bisacodyl 10 mg 10/25/18 00:57 Dulcolax ND QDAY PRN Constipation Enoxaparin Sodium 40 mg 10/25/18 10:00 10/26/18 10:11 Lovenox SUB-Q Not Given QDAY ALISSA Magnesium Hydroxide 30 ml 10/25/18 00:57 Milk Of Magnesia PO Q4H PRN Constipation Ondansetron HCl 4 mg 10/25/18 00:57 Zofran IV Q8H PRN Nausea And Vomiting Prednisone 60 mg 10/26/18 10:00 10/26/18 10:10 Deltasone PO 60 mg QDAY ALISSA Administration Sodium Chloride 10 ml 10/25/18 00:57 Sodium Chloride Flush Syringe 10 Ml IV PRN PRN LINE FLUSH Valacyclovir HCl 1,000 mg 10/25/18 20:00 10/26/18 08:38 Valtrex PO 11/01/18 19:59 1,000 mg TID ALISSA Administration
--- NOTE | 2018-10-26 13:01 | Discharge Summary ---
Providers - Providers Date of Admission: 10/25/18 00:16 Date of discharge: 10/26/18 Attending physician: JUANITO CELESTE 10/25/18 00:57 Occupational Therapy Evaluate and Treat [CONS] Routine Comment: Reason For Exam: Neuro deficits Physical Therapy Evaluation and Treat [CONS] Routine Comment: Reason For Exam: Neuro deficits 10/25/18 04:02 Consult to Physician [CONS] Routine Comment: Consulting Provider: MARY MOHAN Physician Instructions: Reason For Exam: rt side weakness 10/25/18 08:06 Speech Therapy Evaluation and Treat [CONS] Routine Reason For Exam: possible cva [facility] Reason for admission: Right facial weakness Condition: Stable Pertinent studies: CT head without contrast; no acute abnormality noted, suspicion for acute cerebral ischemia. [facility] MRI, MRI : no acute are subacute infarct or hemorrhage , acute CVA ruled out MRA brain; normal study Echocardiogram; EF 55-60% Hospital course: 43-year-old female patient was admitted through emergency room with history of right-sided facial weakness of one day duration, patient is not a candidate for TPA , admitted to the hospital , had extensive neuro workup , evaluated by neurologist Findings consistent with right-sided Maddox's palsy .neurologist recommended low- dose steroids and antivirals . Patient's symptoms gradually significantly improved , continues to have residual partial weakness in closing of the right eye and right-sided weakness Patient did not have any focal weakness, and findings are not consistent with acute CVA or TIA Today patient is comfortable no new complaints, Vital signs reviewed, Physical examination no new changes Patient advised artificial tears to prevent the dryness, as well as advised to wear a bandage. The eyelids together with the tape to prevent dryness and damage, Patient verbalized understanding Patient is being discharged on low-dose steroids tapering over 9 days, as well as 5 days more of valacyclovir Patient advised to follow with primary care physician, private neurologist for further evaluation and management Hemodynamically and clinically stable at discharge Acute CVA ruled out. Discharge diagnosis; --Right-side Maddox's palsy; Low-dose steroids, Valtrex, supportive care --CVA-like symptoms; no evidence of acute CVA, CVA ruled out -- Disposition: - TO HOME OR SELFCARE Time spent for discharge: 32 min - Discharge Diagnoses (1) Maddox's palsy Status: Acute Core Measure Documentation - Palliative Care Palliative Care/ Comfort Measures: Not Applicable - Core Measures Any of the following diagnoses?: none Exam - Constitutional Vitals: Temp Pulse Resp BP Pulse Ox 98.3 F 59 L 20 105/68 98 10/26/18 07:40 10/26/18 11:48 10/26/18 09:00 10/26/18 07:40 10/26/18 09:00 General appearance: Present: no acute distress, well-nourished, other (right bells palsy) - EENT Eyes: Present: PERRL - Neck Neck: Present: supple, normal ROM - Respiratory Respiratory effort: normal Respiratory: negative: rales, rhonchi, wheezing - Cardiovascular Rhythm: regular Heart Sounds: Present: S1 & S2 - Extremities Extremities: no ischemia, No edema - Abdominal General gastrointestinal: Present: soft, non-tender, non-distended, normal bowel sounds - Integumentary Integumentary: Present: clear, warm - Musculoskeletal Musculoskeletal: strength equal bilaterally, generalized weakness - Psychiatric Psychiatric: appropriate mood/affect, cooperative - Neurologic Neurologic: other (Rt Maddox's palsy) Plan Activity: advance as tolerated Diet: regular Additional Instructions: Advised to wear eye patch/or tape the rt eyelids to protect from sun/from dryness or wear Sun glasses Follow up with: SUSSY ROGERS MD [Primary Care Provider] - 3-5 Days MARY MOHAN MD [Staff Physician] - 7 Days Forms: Work/School Release Form Prescriptions: Glycerin/Propylene Glycol [Artificial Tears Drops] 3 drops OP TID 7 Days drops predniSONE [Deltasone] 4 tab PO QDAY #21 tab valACYclovir [Valtrex] 500 mg PO BID #10 tab
[2018-10-26 13:02] LABS: Chol/HDL Ratio 3.63 %
--- NOTE | 2018-10-26 13:15 | Progress Note ---
Subjective Date of service: 10/26/18 Interval history: alert and talking well about 25% better compared to ... can blink better ....instructed in facial nerve recovery functions for exercise DC planning with Dr. Corado plan see in office Sunday patient may go at this point Objective - Vital Sign Vital Signs - 12hr 10/26/18 10/26/18 10/26/18 05:09 07:40 09:00 Temperature 98.5 F 98.3 F Pulse Rate 59 L 62 Pulse Rate [ 84 Apical] Pulse Rate [ 82 From Monitor] Respiratory 18 16 20 Rate Blood Pressure 111/69 105/68 O2 Sat by Pulse 96 98 98 Oximetry 10/26/18 11:48 Temperature Pulse Rate 59 L Pulse Rate [ Apical] Pulse Rate [ From Monitor] Respiratory Rate Blood Pressure O2 Sat by Pulse Oximetry - Laboratory Findings CBC and BMP: 10/24/18 22:03 10/24/18 22:03 Abnormal Lab Findings: Abnormal Labs 10/24/18 10/24/18 22:03 22:03 MCV 72 L MCH 23 L RDW 17.2 H Lymphocytes % (Manual) 38.0 H Monocytes % (Manual) 11.0 H Potassium 3.0 L BUN 6 L Total Creatine Kinase 142 H
[2018-10-26 15:17] VITALS: BP 108/67
== END 2018-10-26 15:17 | disposition home or self-care (01) | DRG 74 ==
LOC: ED 21:51 → 4A 10-25 00:16
PROVIDERS: ADMIT Internal Medicine; ATTEND Internal Medicine
DX: G51.0 Bell's palsy (principal); Z82.49 Family history of ischemic heart disease and other diseases of the circulatory system
CPT/HCPCS: 36415; 70450; 70544; 70551; 80048; 80061; 80307; 81001; 81025; 82550; 82553; 82962; 84484; 85007; 85025; 85610; 85670; 85730; 86850; 86900; 86901; 93005; 93010; 93306; G0378; A9270-GY; J1650; J7512